=== PATIENT | male | born 1985 | race Hispanic/Latino ===

== ENCOUNTER 2017-12-09 21:57 | Emergency (ER) | payer MEDICAID, OTHER ==
[2017-12-09] MEDS ORDERED: KETOROLAC TROMETHAMINE 60 MG/2 ML VIAL ONE (22:16)
== END 2017-12-09 22:59 | disposition home or self-care (01) ==
LOC: EDH 21:57
DX: S13.4XXA Sprain of ligaments of cervical spine, initial encounter (principal); S33.5XXA Sprain of ligaments of lumbar spine, initial encounter; V49.49XA Driver injured in collision with other motor vehicles in traffic accident, initial encounter; Y93.89 Activity, other specified; Y92.89 Other specified places as the place of occurrence of the external cause; Y99.8 Other external cause status
CPT/HCPCS: 99282; J1885

== ENCOUNTER 2022-04-15 16:24 | Emergency (ER) | payer OTHER ==
[~2022-04-15] VITALS: Ht 188 cm; Wt 127.0 kg
[2022-04-15] MEDS ORDERED: TETANUS/DIPHTHERIA TOXOID [ADULT] 0.5 ML VIAL IM ONE (17:30)
[2022-04-15] MEDS ORDERED: AMOX1TAB16 PO (17:57)
[2022-04-15] MEDS ORDERED: AMOX/CLAV 875/125MG TAB PO ONE (18:00)
[2022-04-15 18:37] VITALS: BP 147/82
== END 2022-04-15 16:58 | disposition home or self-care (01) ==
LOC: EDH 16:24
DX: S91.331A Puncture wound without foreign body, right foot, initial encounter (principal); X58.XXXA Exposure to other specified factors, initial encounter; Y93.89 Activity, other specified; Y92.89 Other specified places as the place of occurrence of the external cause; Y99.8 Other external cause status
CPT/HCPCS: 73620; 90714